=== PATIENT | female | born 1990 | race African-American/Black ===

== ENCOUNTER 2019-11-09 08:51 | Inpatient (IN) ==
[2019-11-09] MEDS: LACTATED RINGERS 1,000 ML IV SCH ×3 (09:20→20:22)
[2019-11-09] MEDS ORDERED: CITRIC ACID/SODIUM CITRATE 30 ML UDCUP PO ONE (09:24)
[2019-11-09] MEDS ORDERED: FAMOTIDINE 20 MG/2 ML VIAL IV ONE (09:24)
[2019-11-09] MEDS ORDERED: ceFAZolin 2,000 MG in PREMIX 1 EACH IV ONE (09:24)
[2019-11-09] MEDS ORDERED: OXYTOCIN 10 UNIT/ML VIAL IM ONE (09:41)
[2019-11-09] MEDS ORDERED: ROPIVACAINE 0.5% 30 ML VIAL ONE (09:56)
[2019-11-09] MEDS ORDERED: MEPERIDINE 50 MG/1 ML VIAL IM ONE (10:00)
[2019-11-09] MEDS ORDERED: OXYTOCIN/LR 30 UNIT/1,000 ML BAG IV ONE (10:01)
[2019-11-09] MEDS ORDERED: OXYTOCIN/LR 20 UNIT/1,000 ML BAG IV ONE ×2 (10:02→17:41)
[2019-11-09] MEDS ORDERED: TRANEXAMIC ACID 1,000 MG/10 ML VIAL ONE (10:02)
[2019-11-09] MEDS ORDERED: miSOPROStoL 200 MCG TABLET ONE (10:02)
[2019-11-09] MEDS ORDERED: METHYLERGONOVINE 0.2 MG/1 ML AMP ONE (10:03)
[2019-11-09] MEDS ORDERED: CARBOPROST TROMETHAMINE 250 MCG/ML AMP IM ONE (10:03)
[2019-11-09] MEDS ORDERED: SODIUM CHLORIDE 0.9% 0 ML IV ONE (10:04)
[2019-11-09 10:08] LABS: Basophils % 0.3 % (0.0-0.8); Eosinophils # 0.2 10*3/uL (0.0-0.87); Eosinophils % 1.6 % (0.00-10.9); Hematocrit 28.5 VOL% (35.7-47.0); Hemoglobin 8.3 GM/DL (12.0-16.0); Immature Granulocytes % 0.7 %; Immature Granulocytes Absolute 0.06 #; Lymphocytes # 2.3 10*3/uL (1.4-4.0); Lymphocytes % 24.9 % (21.3-54.2); Mean Corpuscular HGB Conc 29.1 GM/DL (32-36); Mean Corpuscular Volume 75.4 FL (87-102); Monocytes % 10.4 % (1.7-12.7); NRBC # 0.07 10*3/uL; Neutrophils % 62.1 % (38.7-73.9); Platelet Count 341 T/CUMM (130-400); Red Blood Count 3.78 MC/CUMM (3.8-5.5); White Blood Count 9.2 T/CUMM (4-12)
[2019-11-09 10:14] LABS: Albumin 2.6 G/DL (3.4-5.0); Bilirubin,Total 1.1 MG/DL (0.2-1.0); Calcium 8.8 MG/DL (8.5-10.1); Osmolality,Calculated 269.7 MOS/KG (273-304); Total Protein 7.4 G/DL (6.4-8.3)
[2019-11-09 11:11] LABS: Apearance,Urine CLOUDY (Clear); Bilirubin,Urine Negative (Negative); Blood, Urine Negative (Negative); Glucose,Urine (UA) Negative (Negative); Ketones,Urine Negative (Negative); Mucus,Urine Occasional /LPF (Occasional); Nitrite,Urine Negative (Negative); Protein,Urine 30 MG/DL; RBC,Urine 24 /HPF (0-4); Squamous Epithelial Cell,Urine Few /HPF (0-10); Urine Color Yellow (Yellow); Urine Specific Gravity 1.012 (1.001-1.035); WBC,Urine 3 /HPF (0-6)
[2019-11-09 11:28] LABS: Cord Arterial Blood HCO3 23.1 MMOL/L
[2019-11-09 11:29] LABS: Cord Venous Blood HCO3 23.2 MMOL/L; Cord Venous Blood PCO2 39.7 MMHG; Cord Venous Blood PO2 44.2 MMHG
[2019-11-09] MEDS ORDERED: PHENYLEPHRINE 1 MG/10 ML SYRINGE IV ONE (11:48)
[2019-11-09] MEDS ORDERED: MORPHINE 10 MG/10 ML VIAL ONE (11:49)
[2019-11-09] MEDS ORDERED: BUPIVACAINE SPINAL 0.75% 2 ML AMP SPINAL ONE (11:49)
[2019-11-09] MEDS ORDERED: ONDANSETRON 4 MG/2 ML VIAL ONE (11:49)
[2019-11-09] MEDS ORDERED: fentaNYL 100 MCG/2 ML VIAL ONE (11:49)
[2019-11-09 13:50] LABS: Apearance,Urine CLEAR (Clear); Bilirubin,Urine Negative (Negative); Blood, Urine Negative (Negative); Glucose,Urine (UA) Negative (Negative); Ketones,Urine 20 mg/dL (Negative); Mucus,Urine Occasional /LPF (Occasional); Nitrite,Urine Negative (Negative); Protein,Urine Negative; RBC,Urine <1 /HPF (0-4); Squamous Epithelial Cell,Urine Occasional /HPF (0-10); Urine Color Yellow (Yellow); Urine Urobilinogen < 2.0 EU/DL (0.2-1.0); WBC,Urine <1 /HPF (0-6)
[2019-11-09] MEDS ORDERED: ONDANSETRON 4 MG/2 ML VIAL IV PRN (15:12)
[2019-11-09] MEDS: ceFAZolin 1,000 MG in SYRINGE 1 EACH IV SCH (18:10)
[2019-11-09 19:18] LABS: Hematocrit 27.2 VOL% (35.7-47.0)
[2019-11-09] MEDS: oxyCODONE/ACETAMINOPHEN 5-325 MG TABLET PO PRN (20:08)
[2019-11-09] MEDS ORDERED: FERROUS SULFATE 325 MG TABLET PO SCH (21:00)
[2019-11-09] MEDS: DOCUSATE SODIUM 100 MG CAPSULE PO SCH (21:09)
[2019-11-09] MEDS: IBUPROFEN 800 MG TABLET PO PRN (23:05)
[2019-11-10] MEDS: ceFAZolin 1,000 MG in SYRINGE 1 EACH IV SCH (02:35)
[2019-11-10] MEDS: oxyCODONE/ACETAMINOPHEN 5-325 MG TABLET PO PRN ×3 (06:09→22:47)
[2019-11-10 06:35] LABS: Basophils % 0.2 % (0.0-0.8); Eosinophils % 0.2 % (0.00-10.9); Hematocrit 23.9 VOL% (35.7-47.0); Hemoglobin 6.8 GM/DL (12.0-16.0); Immature Granulocytes % 0.5 %; Immature Granulocytes Absolute 0.06 #; Lymphocytes # 2.6 10*3/uL (1.4-4.0); Mean Corpuscular HGB Conc 28.5 GM/DL (32-36); Mean Corpuscular Volume 75.4 FL (87-102); Mean Platelet Volume 9.7 FL (9.6-12.0); Monocytes % 12.8 % (1.7-12.7); Neutrophils % 65.3 % (38.7-73.9); Red Blood Count 3.17 MC/CUMM (3.8-5.5); Red Cell Distribution Width 17.9 % (9.3-17.3); White Blood Count 12.2 T/CUMM (4-12)
[2019-11-10 06:41] LABS: Platelet Count 272 T/CUMM (130-400)
[2019-11-10 07:13] LABS: Platelet Estimate Adequate
[2019-11-10 07:14] LABS: Hypochromasia 2+; Ovalocytes Slight
[2019-11-10] MEDS ORDERED: SODIUM CHLORIDE 0.9% 1,000 ML IV PRN ×2 (07:15→07:17)
[2019-11-10] MEDS: DOCUSATE SODIUM 100 MG CAPSULE PO SCH ×2 (08:42→20:36)
[2019-11-10] MEDS: FERROUS SULFATE 325 MG TABLET PO SCH ×3 (08:42→20:15)
[2019-11-10 14:00] LABS: Hematocrit 29.5 VOL% (35.7-47.0)
[2019-11-10 14:04] LABS: Hemoglobin 8.8 GM/DL (12.0-16.0)
[2019-11-10] MEDS: IBUPROFEN 800 MG TABLET PO PRN (14:14)
[2019-11-10] MEDS: METOCLOPRAMIDE 10 MG TABLET PO SCH ×2 (14:24→22:47)
[2019-11-10] MEDS: MAGNESIUM HYDROXIDE SUSP 30 ML UDCUP PO SCH ×2 (14:24→22:47)
[2019-11-10] MEDS ORDERED: BISACODYL 10 MG SUPP RECTAL PRN (20:08)
[2019-11-10] MEDS ORDERED: WITCH HAZEL PADS 100/JAR TOP PRN (20:25)
[2019-11-10] MEDS ORDERED: HYDROCORTISONE 2.5% RECTAL CREAM 30 GM TUBE TOP PRN (20:26)
[2019-11-10] MEDS ORDERED: MAGNESIUM CITRATE 300 ML BOTTLE PO ONE (22:55)
[2019-11-11] MEDS: METOCLOPRAMIDE 10 MG TABLET PO SCH (06:26)
[2019-11-11 07:25] VITALS: BP 133/78
[2019-11-11] MEDS: FERROUS SULFATE 325 MG TABLET PO SCH (07:44)
[2019-11-11] MEDS: DOCUSATE SODIUM 100 MG CAPSULE PO SCH (07:44)
[2019-11-11] MEDS: IBUPROFEN 800 MG TABLET PO PRN (08:05)
[2019-11-11] MEDS: oxyCODONE/ACETAMINOPHEN 5-325 MG TABLET PO PRN (08:05)
[2019-11-11] MEDS ORDERED: SIMETHICONE CHEW 80 MG TABLET PO PRN (08:13)
[2019-11-11] MEDS: MAGNESIUM HYDROXIDE SUSP 30 ML UDCUP PO SCH (12:46)
== END 2019-11-11 12:45 | disposition home or self-care (01) | DRG 540 ==
LOC: N.LDOUT 08:51 → N.LD 08:54 → N.OB 14:25
PROVIDERS: ADMIT Obstetrics & Gynecology; ATTEND Obstetrics & Gynecology
PROC: LDCSECT (ICD-10-PCS; 2019-11-09 09:00)